=== PATIENT | female | born 1955 | race Caucasian/White ===

== ENCOUNTER 2022-01-09 06:09 | Day surgery (SDC) | payer MEDICARE ==
[2022-01-03 16:18] LABS: CLARITY,URINE SLIGHTLY CLOUDY (Clear); COLOR,URINE YELLOW (Yellow); GLUCOSE, URINE NEGATIVE (Neg); KETONES,URINE NEGATIVE (Neg); LEUKOCYTE ESTERASE ,URINE NEGATIVE (Neg); NITRITES, URINE NEGATIVE (Neg); OCCULT BLOOD,URINE SMALL (Neg); PH,URINE 5.5 (4.8-8.0); PROTEIN,URINE NEGATIVE (Neg); UROBILINOGEN,URINE 0.2 E.U/dL (0.2-1.0)
[2022-01-03 16:22] LABS: UA COLLECTION TYPE CLN CATCH MIDSTREAM
[2022-01-03 16:24] LABS: BASOPHILS # (AUTO) 0.1 X10'3 (0-0.2); BASOPHILS % (AUTO) 1.2 % (0-1); EOSINOPHILS # (AUTO) 0.2 X10'3 (0-0.9); EOSINOPHILS % (AUTO) 3.2 % (0-6); LYMPHOCYTES # (AUTO) 1.9 X10'3 (1.1-4.8); LYMPHOCYTES % (AUTO) 29.3 % (21-51); MEAN CORPUSCULAR HEMOGLOBIN 32.1 PG (27.0-31.0); MEAN CORPUSCULAR HGB CONC 34.6 g/dL (33.0-36.5); MEAN CORPUSCULAR VOLUME 92.9 FL (78-98); MONOCYTES # (AUTO) 0.6 X10'3 (0-0.9); MONOCYTES % (AUTO) 9.2 % (2-12); NEUTROPHILS # (AUTO) 3.6 X10'3 (1.8-7.7); NEUTROPHILS % (AUTO) 57.1 % (42-75); PRE OP HEMATOCRIT 41.2 % (35.0-45.0); PRE OP HEMOGLOBIN 14.2 g/dL (12.0-16.0); PRE OP PLATELET COUNT 305 X10'3 (140-440); RED BLOOD COUNT 4.44 X10'6 (4.20-5.60)
[2022-01-03 16:30] LABS: BACTERIA,URINE FEW /HPF (Neg); CAL OXALATE CRYSTALS 1+ /HPF (NEGATIVE); HYALINE CASTS 0-3 /LPF (NEGATIVE); MUCUS STRANDS FEW /LPF (Neg); RBC,URINE 0-2 /HPF (0-2); SQUAMOUS EPITHELIAL CELL,UR FEW /LPF (FEW); WBC,URINE 0-4 /HPF (0-4)
[2022-01-03 16:38] LABS: ALBUMIN 3.9 G/DL (3.4-5.0); ALBUMIN/GLOBULIN RATIO 1.1 (1.1-1.5); ALKALINE PHOSPHATASE 105 IU/L (46-116); BLOOD UREA NITROGEN 24 MG/DL (7-18); BUN/CREATININE RATIO 28.9 (6.6-38.0); CHLORIDE 107 MMOL/L (99-107); CREATININE 0.83 MG/DL (0.40-0.90); PRE OP ALT 32 U/L (30-65); PRE OP ANION GAP 10 (8-16); PRE OP AST 17 U/L (10-37); PRE OP BILIRUB, TOTAL 0.2 MG/DL (0.0-1.0); PRE OP GLUCOSE 94 MG/DL (70-104); PRE OP SODIUM 145 MMOL/L (135-145); TOTAL CARBON DIOXIDE 28.4 MMOL/L (24-32); TOTAL PROTEIN 7.3 G/DL (6.4-8.2); eGFR 69 ML/MIN
[2022-01-03 16:40] LABS: PRE OP POTASSIUM 3.3 MMOL/L (3.4-5.1)
[~2022-01-09] VITALS: Ht 157.5 cm; Wt 89.3 kg
[2022-01-09] VITALS (9 sets, daily range): BP systolic 119–141; BP diastolic 68–82
[~2022-01-09 06:09] MED LIST: AMLO5TAB16 PO; ATOR20TA66 PO; LEVO100T9 PO; LISI40TA13 PO; MELO-102 PO; MULT-1249; ONDA8TAB13 PO; SUMA100T16 PO; ceFAZolin inj. 2,000 MG in dextrose 5%-water 100 ML IV ONE; famotidine 20mg tablet PO ONE; ringers solution, lacted 1,000 ML IV SCH
[2022-01-09] MEDS ORDERED: meperidine/PF 25mg/ml syringe IV PRN ×3 (08:45)
[2022-01-09] MEDS ORDERED: ringers solution, lacted 1,000 ML IV SCH (08:45)
[2022-01-09] MEDS ORDERED: proCHLORperazine 10 MG/2 ml inj IV PRN (08:45)
[2022-01-09] MEDS ORDERED: ondansetron/PF 4mg/2ml inj IV PRN (08:45)
[2022-01-09] MEDS ORDERED: morphine 4 MG/ML inj SYRINge IV PRN (08:45)
[2022-01-09] MEDS ORDERED: morphine 2 MG/ML inj. syringe IV PRN (08:45)
[2022-01-09] MEDS ORDERED: BUPIVAcaine/PF 2.5 mg/ml (0.25%) 30ml vial ONE (09:40)
[2022-01-09] MEDS ORDERED: bacitracin 15gm ointment TP ONE (09:40)
[2022-01-09] MEDS ORDERED: LIDOcaine 1% (10mg/ml)w/preservative inj. 20ml MDV ONE (09:57)
[2022-01-09] MEDS ORDERED: sevoflurane 250ml liquid IH ONE (09:57)
[2022-01-09] MEDS ORDERED: midazolam 1 mg/ML 2ml injection ONE (10:04)
[2022-01-09] MEDS ORDERED: fentaNYL /PF 50mcg/ml 5ml ampule ONE (10:04)
[2022-01-09] MEDS ORDERED: ROPIVAcaine 0.5% (5mg/ml) 30ml vial ONE (10:04)
[2022-01-09] MEDS ORDERED: cloNIDine hcl/PF 100mcg/ml inj ONE (10:06)
[2022-01-09] MEDS ORDERED: propofol inj 20 ML IV ONE (10:08)
[2022-01-09] MEDS ORDERED: BUPIVAcaine/PF 7.5mg/ml (0.75%) 10ml vial ONE (10:24)
[2022-01-09] MEDS ORDERED: ondansetron/PF 4mg/2ml inj ONE (12:37)
--- NOTE | 2022-01-09 12:46 | NUR ---
Received from OR via [facility] IN STABLE CONDITION , accompanied by Anesthesiologist and MEDICAL STAFF SPECIALIST report given by MEDICAL STAFF SPECIALIST AND Anesthesiolgist. Addendum: 01/09/22 at 1332 by Katie Butcher RN Amended: Links added.
--- NOTE | 2022-01-09 13:30 | NUR ---
PATIENT GIVEN IS AND INSTRUCTIONS ON USE. Addendum: 01/09/22 at 1436 by Katie Butcher RN Amended: Links added.
--- NOTE | 2022-01-09 14:16 | NUR ---
PATIENT DISCHARGED FROM PACU IN STABLE CONDITION AFTER WRITTEN AND VERBAL DISCHARGE INSTRUCTIONS GIVEN. PATIENT GAVE VERBAL UNDERSTANDING OF INSTRUCTIONS GIVEN. PATIENT LEFT FACILITY VIA WHEELCHAIR WITH RN. Addendum: 01/09/22 at 1436 by Katie Butcher RN Amended: Links added.
== END 2022-01-09 14:16 | disposition home or self-care (01) ==
LOC: PAS 06:09
PROVIDERS: ATTEND Podiatrist Foot & Ankle Surgery
DX: S86.312A Strain of muscle(s) and tendon(s) of peroneal muscle group at lower leg level, left leg, initial encounter (principal); S82.832A Other fracture of upper and lower end of left fibula, initial encounter for closed fracture; M21.822 Other specified acquired deformities of left upper arm; S93.492A Sprain of other ligament of left ankle, initial encounter; M25.372 Other instability, left ankle; G89.18 Other acute postprocedural pain; I10 Essential (primary) hypertension; G43.909 Migraine, unspecified, not intractable, without status migrainosus; X58.XXXA Exposure to other specified factors, initial encounter; Y93.89 Activity, other specified; Y92.89 Other specified places as the place of occurrence of the external cause; Y99.8 Other external cause status; Z79.899 Other long term (current) drug therapy; Z98.890 Other specified postprocedural states; Z87.891 Personal history of nicotine dependence
CPT/HCPCS: 27641; 27664; 27696; 29898; 36415; 64447; 64450; 73620; 76942; 80053; 81001; 82948; 85025; 87811; 93005; A6222; C1713; J0690; J0735; J2250; J2405; J2704; J2795; J3010; J3490; J7060; J7120; Z7506; Z7508; Z7512; 76000; A4618; A6449; A7000

== ENCOUNTER 2024-01-31 16:51 | Inpatient (IN) | payer MEDICARE ==
[~2024-01-31] VITALS: Ht 157.5 cm; Wt 111.8 kg
[~2024-01-31 16:51] MED LIST changes: +ONDA-245 PO; -ONDA8TAB13 PO; -ceFAZolin inj. 2,000 MG in dextrose 5%-water 100 ML IV ONE; -famotidine 20mg tablet PO ONE; -ringers solution, lacted 1,000 ML IV SCH
[2024-01-31 17:16] LABS: BASOPHILS % (AUTO) 0.6 % (0-1); EOSINOPHILS # (AUTO) 0.2 X10'3 (0-0.9); EOSINOPHILS % (AUTO) 3.4 % (0-6); HEMATOCRIT 41.8 % (35.0-45.0); HEMOGLOBIN 14.2 g/dl (12.0-16.0); LYMPHOCYTES # (AUTO) 1.9 X10'3 (1.1-4.8); LYMPHOCYTES % (AUTO) 27.3 % (21-51); MEAN CORPUSCULAR VOLUME 94.2 FL (78-98); MEAN PLATELET VOLUME 7.9 FL (7.4-10.4); MONOCYTES # (AUTO) 0.6 X10'3 (0-0.9); MONOCYTES % (AUTO) 8.2 % (2-12); NEUTROPHILS # (AUTO) 4.3 X10'3 (1.8-7.7); NEUTROPHILS % (AUTO) 60.5 % (42-75); PLATELET COUNT 334 X10'3 (140-440); RED BLOOD COUNT 4.43 X10'6 (4.20-5.60); RED CELL DISTRIBUTION WIDTH 13.5 % (11.5-14.5); WHITE BLOOD COUNT 7.1 X10'3 (4.5-11.0)
[2024-01-31 17:26] LABS: ALANINE AMINOTRANSFERASE 39 U/L (12-78); ALBUMIN 3.7 G/DL (3.4-5.0); ALKALINE PHOSPHATASE 109 IU/L (46-116); ANION GAP 9 (8-16); ASPARTATE AMINO TRANSFERASE 23 U/L (10-37); BILIRUBIN,TOTAL 0.3 MG/DL (0.1-1.0); BLOOD UREA NITROGEN 23 MG/DL (7-18); BUN/CREATININE RATIO 18.1 (10.0-20.0); CALCIUM 8.9 MG/DL (8.5-10.1); CHLORIDE 106 MMOL/L (99-107); CREATININE 1.27 MG/DL (0.40-0.90); GLUCOSE 109 MG/DL (70-104); POTASSIUM 3.7 MMOL/L (3.5-5.1); SODIUM 142 MMOL/L (135-145); TOTAL CARBON DIOXIDE 27.2 MMOL/L (24-32); TOTAL PROTEIN 7.4 G/DL (6.4-8.2); eCRCL 34 ML/MIN; eGFR 42 ML/MIN
[2024-01-31 17:35] LABS: PRO BRAIN NATRIURETIC PEPTIDE < 30 PG/ML (0-125)
[2024-01-31] MEDS: normal saline 1000ml 1,000 ML IV ONE (20:24)
[2024-01-31] MEDS: aspirin 325mg tablet, delayed-release (Ecotrin) PO ONE (20:26)
[2024-01-31] MEDS ORDERED: AMLO-513 PO (20:53)
[2024-01-31] MEDS ORDERED: LEVO88TA7 PO (20:53)
[2024-01-31] MEDS ORDERED: DUTA0.5C36 PO (20:53)
[2024-01-31] MEDS ORDERED: magnesium sulf-water 2g/50mL 50 ML IV PRN ×2 (21:25→21:45)
[2024-01-31] MEDS ORDERED: mag hydrox/Alum hydrox/simeth 30ml oral suspension PO PRN ×2 (21:25→21:45)
[2024-01-31] MEDS ORDERED: magnesium hydroxide 30ml (MOM) UD suspension PO PRN ×2 (21:25→21:45)
[2024-01-31] MEDS ORDERED: acetaminophen 325mg tablet PO PRN (21:25)
[2024-01-31] MEDS ORDERED: magnesium Cl slow-release 64mg tablet PO PRN ×2 (21:25→21:45)
[2024-01-31] MEDS ORDERED: potassium Cl 20 mEq SR tablet PO PRN ×4 (21:25→21:45)
[2024-01-31] MEDS ORDERED: ondansetron/PF 4mg/2ml inj IV PRN ×2 (21:25→21:45)
[2024-01-31] MEDS ORDERED: magnesium sulf-water 4G/100mL 100 ML IV PRN ×2 (21:25→21:45)
[2024-01-31] MEDS ORDERED: potassium Cl 40MEQ/1/2NS 520ml 520 ML IV PRN ×2 (21:25→21:45)
[2024-01-31] MEDS ORDERED: PERFLUTREN PROTEIN-A MICROSPHR (Optison) 0.22 MG/ML 3ML VIAL IV ONE (21:45)
[2024-01-31] MEDS ORDERED: morphine 2 MG/ML inj. syringe IV PRN (21:45)
[2024-01-31] MEDS ORDERED: metoprolol tartrate 1mg/ml inj IV PRN (22:15)
[2024-01-31] MEDS ORDERED: aminophylline 250mg/10ml inj. IV PRN (22:15)
[2024-01-31] MEDS ORDERED: nitroGLYCERIN 0.4mg SUBLingual tab SL PRN (22:15)
[2024-01-31] MEDS: carVEDilol 3.125mg tablet PO SCH (22:34)
[2024-01-31] MEDS: atorvastatin 20mg tablet PO SCH (22:34)
[2024-01-31] MEDS: hydrALAZINE 20mg/ml inj. IV ONE (22:40)
[2024-01-31] MEDS: acetaminophen 325mg tablet PO PRN (23:33)
[2024-01-31 23:55] VITALS: BP 141/81; PULSE 68; RESP 15; TEMP 97.8; O2SAT 98
[2024-02-01] VITALS (13 sets, daily range): BP systolic 110–155; BP diastolic 60–82; PULSE 53–92; RESP 14–19; TEMP 96.8–98.2; O2SAT 92–97
[2024-02-01 01:30] LABS: BASOPHILS % (AUTO) 0.6 % (0-1); EOSINOPHILS # (AUTO) 0.2 X10'3 (0-0.9); HEMATOCRIT 37.7 % (35.0-45.0); HEMOGLOBIN 12.6 g/dl (12.0-16.0); LYMPHOCYTES # (AUTO) 2.1 X10'3 (1.1-4.8); LYMPHOCYTES % (AUTO) 33.5 % (21-51); MEAN CORPUSCULAR HEMOGLOBIN 31.6 PG (27.0-31.0); MEAN CORPUSCULAR HGB CONC 33.5 g/dL (33.0-36.5); MEAN CORPUSCULAR VOLUME 94.4 FL (78-98); MEAN PLATELET VOLUME 8.1 FL (7.4-10.4); MONOCYTES # (AUTO) 0.6 X10'3 (0-0.9); NEUTROPHILS # (AUTO) 3.3 X10'3 (1.8-7.7); NEUTROPHILS % (AUTO) 52.9 % (42-75); PLATELET COUNT 297 X10'3 (140-440); RED CELL DISTRIBUTION WIDTH 13.6 % (11.5-14.5); WHITE BLOOD COUNT 6.2 X10'3 (4.5-11.0)
[2024-02-01 01:47] LABS: ALANINE AMINOTRANSFERASE 36 U/L (12-78); ALBUMIN/GLOBULIN RATIO 0.9 (1.1-1.5); ALKALINE PHOSPHATASE 90 IU/L (46-116); ANION GAP 7 (8-16); ASPARTATE AMINO TRANSFERASE 19 U/L (10-37); BILIRUBIN,TOTAL 0.2 MG/DL (0.1-1.0); BLOOD UREA NITROGEN 20 MG/DL (7-18); BUN/CREATININE RATIO 23.8 (10.0-20.0); CALCIUM 8.5 MG/DL (8.5-10.1); CHLORIDE 110 MMOL/L (99-107); CREATININE 0.84 MG/DL (0.40-0.90); GLUCOSE 91 MG/DL (70-104); POTASSIUM 3.4 MMOL/L (3.5-5.1); SODIUM 143 MMOL/L (135-145); TOTAL CARBON DIOXIDE 26.2 MMOL/L (24-32); TOTAL PROTEIN 6.2 G/DL (6.4-8.2); eCRCL 51 ML/MIN; eGFR 68 ML/MIN
[2024-02-01 01:55] LABS: CHOL/HDL RATIO 2.5 (0.00-4.99); CHOLESTEROL 138 MG/DL (0-200); HDL CHOLESTEROL 55 MG/DL (35-60); LDL CHOLESTEROL 72 MG/DL (50-100); MAGNESIUM 1.7 MG/DL (1.5-2.4); THYROID STIMULATING HORMONE 3.96 ulU/ml (0.34-4.50); TRIGLYCERIDES 67 MG/DL (20-135)
[2024-02-01] MEDS: docusate sod 100mg capsule PO SCH (07:53)
[2024-02-01] MEDS: levoTHYROXINE 88mcg tablet PO SCH (07:53)
[2024-02-01] MEDS ORDERED: levoTHYROXINE 100mcg tablet PO SCH (08:00)
[2024-02-01] MEDS: K and/or MAG REPLACEMENT MC SCH (08:00)
[2024-02-01] MEDS ORDERED: K and/or MAG REPLACEMENT MC SCH (08:00)
[2024-02-01] MEDS: dutasteride 0.5 MG capsule PO SCH (08:00)
[2024-02-01] MEDS ORDERED: docusate sod 100mg capsule PO SCH (08:00)
[2024-02-01] MEDS: pantoprazole 40 MG vial IV SCH (09:23)
[2024-02-01] MEDS: heparin, porcine 5000 units/ml vial SQ SCH (09:24)
[2024-02-01] MEDS: aspirin 81mg, enteric-coated 1 TAB TABLET.DR PO SCH (09:30)
[2024-02-01] MEDS: regadenoson 0.4mg/5ml syringe IV PRN (11:11)
[2024-02-01] MEDS: amLODIPine 5mg tablet PO SCH (12:08)
[2024-02-01] MEDS: losartan 50mg tablet PO SCH (12:09)
[2024-02-01 12:22] LABS: BILIRUBIN,URINE NEGATIVE (Neg); CLARITY,URINE SLIGHTLY CLOUDY (Clear); COLOR,URINE YELLOW (Yellow); GLUCOSE, URINE NEGATIVE (Neg); KETONES,URINE NEGATIVE (Neg); LEUKOCYTE ESTERASE ,URINE TRACE (Neg); NITRITES, URINE NEGATIVE (Neg); OCCULT BLOOD,URINE NEGATIVE (Neg); PH,URINE 7.5 (4.8-8.0); PROTEIN,URINE NEGATIVE (Neg); UROBILINOGEN,URINE 0.2 E.U/dL (0.2-1.0)
[2024-02-01 12:24] LABS: UA COLLECTION TYPE NON-SPECIFIED
[2024-02-01 12:36] LABS: MUCUS STRANDS MODERATE /LPF (Neg); SQUAMOUS EPITHELIAL CELL,UR MANY /LPF (FEW)
[2024-02-01 12:37] LABS: TRANSITIONAL EPI CELLS,URINE FEW /HPF
[2024-02-01 12:43] LABS: BACTERIA,URINE 2+ /HPF (Neg); RBC,URINE 0-2 /HPF (0-2)
[2024-02-01] MEDS ORDERED: PANT40TA54 PO (15:13)
[2024-02-01] MEDS ORDERED: ASPI-1265 PO (15:13)
[2024-02-01] MEDS ORDERED: NITR0.4T48 SL (15:13)
== END 2024-02-01 16:40 | disposition home or self-care (01) | DRG 392 ==
LOC: ER 16:52 → ED HOLD 21:56 → EDBEDREQ 22:47 → PCU 3S 23:20
PROVIDERS: ADMIT Surgery; ATTEND Family Medicine
PROC: 4A02XM4 Measurement of Cardiac Total Activity, External Approach (ICD-10-PCS; principal; 2024-02-01)
PROC: 3E073KZ Introduction of Other Diagnostic Substance into Coronary Artery, Percutaneous Approach (ICD-10-PCS; 2024-02-01)
DX: K21.9 Gastro-esophageal reflux disease without esophagitis (principal); Z68.42 Body mass index [BMI] 45.0-49.9, adult; N17.9 Acute kidney failure, unspecified; I35.0 Nonrheumatic aortic (valve) stenosis; I10 Essential (primary) hypertension; E78.5 Hyperlipidemia, unspecified; E03.9 Hypothyroidism, unspecified; E66.01 Morbid (severe) obesity due to excess calories; L65.9 Nonscarring hair loss, unspecified
CPT/HCPCS: 36415; 71045; 78452; 80053; 80061; 81001; 83735; 83880; 84443; 84484; 85025; 87081; 93005; 93017; 93306; 96360; 99285; A9500; G0378; J1644; J2470; J2785; J7030